=== PATIENT | female | born 1975 | race Caucasian/White ===

== ENCOUNTER 2024-03-14 08:54 | Emergency (ER) | payer SELFPAY ==
[~2024-03-14] VITALS: Ht 165.1 cm; Wt 73.0 kg
[2024-03-14 09:00] VITALS: O2SAT 99
[2024-03-14] MEDS: ONDANSETRON HCL 4MG/2ML INJ IV STA (09:56)
[2024-03-14] MEDS: MORPHINE SULFATE 4 MG/ML INJ (FOR IV/IM USE) IV STA (09:56)
[2024-03-14] MEDS: SODIUM CHLORIDE 0.9% 1,000 ML IV ONE (09:57)
[2024-03-14 10:37] LABS: HCG SCREEN NEGATIVE
[2024-03-14 10:39] LABS: CHLORIDE 105 mEq/L (98-107); POTASSIUM 3.3 mEq/L (3.5-5.1); SODIUM 139 mEq/L (136-145)
[2024-03-14 10:40] LABS: CARBON DIOXIDE 25 mEq/L (21-32)
[2024-03-14 10:43] LABS: BASOPHILS % 0.5 % (0.0-2.0); EOSINOPHILS % 1.3 % (0.0-5.0); HEMATOCRIT. 42.9 % (36.0-48.0); HEMOGLOBIN. 14.6 g/dL (12.0-16.0); LYMPHOCYTES % 43.9 % (20.0-50.0); MEAN CORPUSCULAR HEMOGLOBIN 29.7 pg (28.0-32.0); MEAN CORPUSCULAR VOLUME 87.4 fL (81.0-99.0); MEAN PLATELET VOLUME 9.5 fl (7.4-10.4); NEUTROPHILS % 46.3 % (40.0-76.0); PLATELET 250 x1000/uL (130-400); RED BLOOD CELL COUNT 4.91 mill/uL (4.2-5.4); RED CELL DISTRIBUTION WIDTH 13.7 % (11.6-14.6); WHITE BLOOD COUNT 6.4 x1000/uL (4.5-11.0)
[2024-03-14 10:45] LABS: CREATININE 0.7 mg/dL (0.6-1.0); GLUCOSE 107 mg/dL (70-105)
[2024-03-14 10:46] LABS: UREA NITROGEN BLOOD 11 mg/dL (9-23)
[2024-03-14 12:02] LABS: TROPONIN I HIGH SENSITIVITY < 4 ng/L (3.0-34)
[2024-03-14 13:09] LABS: CLARITY URINE CLEAR (CLEAR); COLOR URINE YELLOW (YELLOW); GLUCOSE URINE NEGATIVE (NEGATIVE); KETONES URINE NEGATIVE (NEGATIVE); LEUKOCYTE ESTERASE URINE NEGATIVE (NEGATIVE); NITRITE URINE NEGATIVE (NEGATIVE); OCCULT BLOOD URINE NEGATIVE (NEGATIVE); PH URINE 7.5 (4.5-8.0); PROTEIN URINE NEGATIVE (NEGATIVE); SPECIFIC GRAVITY URINE 1.007 (1.005-1.030); UROBILINOGEN URINE 0.2 E.U./dL (0.2-1.0)
[2024-03-14] MEDS ORDERED: NAPR220C61 MT (13:27)
[2024-03-14 13:42] VITALS: BP 156/89; PULSE 71; RESP 15
[2024-03-14] MEDS: KETOROLAC 30MG/ML VIAL IV ONE (13:42)
[2024-03-14 13:43] VITALS: TEMP 98
[2024-03-14] MEDS: ACETAMINOPHEN 325MG TABLET PO ONE (13:43)
== END 2024-03-14 16:15 | disposition home or self-care (01) ==
LOC: ER 08:54
DX: S09.8XXA Other specified injuries of head, initial encounter (principal); I10 Essential (primary) hypertension; X58.XXXA Exposure to other specified factors, initial encounter; Y93.89 Activity, other specified; Y92.89 Other specified places as the place of occurrence of the external cause; Y99.8 Other external cause status
CPT/HCPCS: 80048; 81003; 84703; 85025; 84484; 36415; 71045; 73070; 70450; 72125; 72128; 72131; 74176; 93005; 96361; 96374; 96375; 99285; J1885; J2405; J2270; J7030; Z7610